=== PATIENT | male | born 1960 | race Hispanic/Latino ===

== ENCOUNTER 2025-07-02 19:41 | Emergency (ER) | payer OTHER ==
[~2025-07-02] VITALS: Ht 170.2 cm; Wt 77.1 kg
[2025-07-02 20:25] LABS: AMPHET/METH SCREEN,URINE NEGATIVE (NEGATIVE); BARBITURATE SCREEN, URINE NEGATIVE (NEGATIVE); CANNABINOID SCREEN,URINE NEGATIVE (NEGATIVE); COCAINE SCREEN,URINE NEGATIVE (NEGATIVE)
[2025-07-02 20:29] LABS: IMMATURE GRANULOCYTE ABSOLUTE 0.03 K/uL (0-1); NUCLEATED RED BLOOD CELLS 0.0 % (0.0-0.19); PLATELET COUNT (AUTO) 377 K/uL (130-400); RED BLOOD CELL COUNT(AUTO) 4.67 MIL/uL (4.50-6.20); RED CELL DISTRIBUTION WIDTH 12.4 % (11.0-15.5); WHITE BLOOD COUNT (AUTO) 9.2 K/uL (4.8-10.8)
[2025-07-02 20:38] LABS: CREATININE 0.8 mg/dL (0.5-1.3); GLOMERULAR FILTR. RATE CALC 98.0 mL/min (>90); GLUCOSE,RANDOM 144.0 mg/dL (70-105); SODIUM SERUM 135.0 mmol/L (136-145); UREA NITROGEN, BLOOD 5.0 mg/dL (7-18)
[2025-07-02 20:39] LABS: INR 1.08 (0.85-1.15)
[2025-07-02 20:44] LABS: ALCOHOL, BLOOD 304.0 mg/dL (0-10)
--- NOTE | 2025-07-02 20:49 | HMCIMG ---
EXAM: CT Cervical Spine Without IV contrast. CLINICAL HISTORY: trauma TECHNIQUE: Axial computed tomography images of the cervical spine without intravenous contrast. Sagittal and coronal reformatted images were generated. COMPARISON: None provided. FINDINGS: ALIGNMENT: Bony alignment is anatomic. DEGENERATIVE CHANGES: Severe cervical spondylosis is evident by marginal osteophytes at multiple levels, uncovertebral hypertrophy, and facet joint arthropathy. There is a straightening of the cervical spine that may reflect paraspinal muscle spasm. Multilevel endplate sclerosis. Moderate reduction in the C3-C4, C5-C6, and C6-C7 intervertebral disc heights. Moderate atlanto-axial joint osteoarthritis. Disc osteophyte complex bulge at the C3-C4 level, resulting in mild right and moderate left neural foraminal narrowing, with possible impingement of the exiting nerve roots. Disc osteophyte complex bulges at the C4-C5, C5-C6, and C6-C7 levels, resulting in mild to moderate bilateral neural foraminal narrowing, with possible impingement of the exiting nerve roots. SOFT TISSUES: The prevertebral soft tissues are within normal limits. BONES: No acute fracture or aggressive appearing osseous lesion. IMPRESSION: No acute cervical spine abnormality. Severe cervical spondylosis with multilevel disc osteophyte complex bulges as described. /[place]
[2025-07-02] MEDS: 0.9%NACL 1000ML 1,000 ML IV ONE (20:50)
--- NOTE | 2025-07-02 20:57 | HMCIMG ---
EXAM: Non-contrast CT examination of the Brain CLINICAL HISTORY: Trauma. TECHNIQUE: Thin collimated axial CT images of the brain were obtained with sagittal and coronal reformatted images also submitted. CT scan is done according to ALARA (As Low as Reasonably Achievable). CONTRAST USED: None. COMPARISON: None provided. FINDINGS: No acute intracranial abnormality is present. No acute cortical infarction, hemorrhage, mass, or mass effect. Mild generalized brain atrophy and chronic microvascular ischemic white matter disease. No hydrocephalus or abnormal extra-axial fluid collections. The posterior fossa is unremarkable. The skull base and calvarium are intact. Moderate fluid within the right maxillary sinus. The remaining paranasal sinuses are clear. The mastoid air cells are clear bilaterally. Soft tissue laceration and hematoma in the left parietal scalp. IMPRESSION: No acute intracranial abnormality is present. Moderate fluid within the right maxillary sinus. Soft tissue laceration and hematoma in the left parietal scalp. /[place]
--- NOTE | 2025-07-02 21:13 | HMCIMG ---
EXAM: CR Chest, 1 View. CLINICAL HISTORY: fall COMPARISON: None provided. FINDINGS: LUNGS: The lungs show no infiltrate or other acute finding. PLEURAL SPACES: No pleural effusion or pneumothorax. MEDIASTINUM: The cardiomediastinal silhouette is within normal limits. BONES: No aggressive appearing osseous lesion seen. IMPRESSION: No acute cardiopulmonary pathology is evident. /[place]
[2025-07-02] MEDS: LIDOCAINE HCL 1% 20 ML VIAL INJ ONE (22:08)
[2025-07-02] MEDS: NEOMY SULF/BACITRA/POLYMYXIN B 1 EACH PACKET TP ONE (22:34)
[2025-07-02 22:40] VITALS: BP 150/88; PULSE 98; RESP 18; TEMP 98.1; O2SAT 97
--- NOTE | 2025-07-02 22:46 | ERN ---
ED Note History of Present Illness Stated Complaint: FALL, HEAD INJURY Chief Complaint: Mechanical Fall Time Seen by MD: 19:45 Time Seen by Midlevel: 19:45 Dictation: The patient is a 64-year-old male with a history of hypertension, alcohol abuse who presents to the emergency department with complaints of a fall onset 7:00 p.m.. Patient reports he was getting history fine he got up really fast causing him to lost balance and falling backwards hitting the back of his head on a cabinet. Patient denies any syncope episode, denies any LOC, denies any nausea or vomiting, denies any neck pain chest pain back pain or any extremity pain. Patient's only complaint is a headache and a scalp laceration. Patient reports he has been drinking. Allergies: Coded Allergies: naproxen (Unverified Allergy, Unknown, 07/02/25) PATIENT REPORTS DOES NOT LIKE NAPROSYN Past Medical History Past Medical History: Hypertension Surgical History: None RN Note Reviewed/Agreed w/PFSH: Yes Review of System Dictation Constitutional: Negative for fever,chills, and weight loss Eyes: Negative for injury, pain,redness, and discharge ENT: Negative for injury,pain or swelling Cardiovascular: Negative for chest pain, palpitations, and edema Respiratory: Negative for shortness of breath, cough, and wheezing, Abdomen/GI: Negative for abdominal pain, nausea, vomiting, diarrhea, and constipation Back: Negative for injury and pain : Negative for injury, bleeding and discharge MS/Extremity: Negative for injury and deformity Skin: Negative for rash, and discoloration positive for laceration Neuro: Negative for weakness, numbness, tingling, and seizure positive for headache Psych: Negative for suicide ideation, homicidal ideation, and hallucinations Initial Vital Sign VS Vital Signs Date Time Temp Pulse Resp B/P (MAP) Pulse Ox O2 Delivery O2 Flow Rate FiO2 07/02/25 19:48 98.1 97 18 155/79 97 Room Air 0 07/02/25 20:14 21 Physical Exam Dictation Vital Signs reviewed General Appearance: Alert, oriented x 3, no acute distress, well developed, nourished. Head and Face: non-traumatic. Eyes: PERRL, pink conjunctivas, eyelid no trauma, anterior chamber with arcus senilis. Ears: Pinnas intact and no signs of trauma or erythema ear canals clear and no discharge TM no erythema Nose: No discharge, no bleeding. Oropharynx: Mouth normal, tongue pink. pharynx clear,no erythema, tonsils no exudates, no abscesses noted, mucous membrane moist Neck: Supple, non-tender, no thyromegaly, no masses, no JVD, no bruits Breast:Deferred Chest:No tenderness, no crepitus, no paradoxical movement, no retractions Lungs:Clear, well-ventilated, symmetric, no rales, no wheezing, no rhonchi, no stridor, good breath sounds bilaterally Heart: Regular rate, regular rhythm, no murmur, no gallops Vascular: no peripheral edema, Abdomen: Soft, positive bowel sounds, nondistended, no guarding, nontender, no rebound, no masses no hepatomegaly, no splenomegaly, no Chiu's sign, no hernias. Rectal: Deferred Genital: Deferred Neurological: Slight slurred speech, motor function intact, sensory function intact Musculoskeletal: Neck nontender, full range of motion, back nontender, full range of motion, Extremities: nontender, full range of motion Skin: Color pink, dry, no turgor, no rash, no abrasions, no contusions. 5 cm laceration to left parietal area, no active bleeding Lymphatic: Deferred Results (Laboratory/Radiology) Laboratory/Radiology Laboratory Tests Test 07/02/25 20:12 07/02/25 20:21 Urine Opiates Screen NEGATIVE (NEGATIVE) Urine Barbiturates Screen NEGATIVE (NEGATIVE) Urine Phencyclidine Screen NEGATIVE (NEGATIVE) Urine Amphetamines Screen NEGATIVE (NEGATIVE) Urine Benzodiazepines Screen NEGATIVE (NEGATIVE) Urine Cocaine Screen NEGATIVE (NEGATIVE) Urine Marijuana (THC) Screen NEGATIVE (NEGATIVE) White Blood Count 9.2 K/uL (4.8-10.8) Red Blood Count 4.67 MIL/uL (4.50-6.20) Hemoglobin 14.9 g/dL (14.0-18.0) Hematocrit 43.3 % (42-54) Mean Corpuscular Volume 92.7 fL (79-99) Mean Corpuscular Hemoglobin 31.9 pg (27.0-33.0) Mean Corpuscular Hemoglobin Concent 34.4 g/dL (32.0-36.0) Red Cell Distribution Width 12.4 % (11.0-15.5) Platelet Count 377 K/uL (130-400) Mean Platelet Volume 8.8 fL (7.5-10.5) Immature Granulocyte % (Auto) 0.3 % (0-1) Neutrophils (%) (Auto) 76.8 % (40.0-77.0) Lymphocytes (%) (Auto) 12.6 % (21.0-51.0) L Monocytes (%) (Auto) 7.7 % (3.0-13.0) Eosinophils (%) (Auto) 1.0 % (0.0-8.0) Basophils (%) (Auto) 1.6 % (0.0-5.0) Neutrophils # (Auto) 7.1 K/uL (1.8-7.7) Lymphocytes # (Auto) 1.2 K/uL (1.0-4.8) Monocytes # (Auto) 0.7 K/uL (0.1-1.0) Eosinophils # (Auto) 0.09 K/uL (0.00-0.70) Basophils # (Auto) 0.15 K/uL (0.00-0.20) Absolute Immature Granulocyte (auto 0.03 K/uL (0-1) Nucleated Red Blood Cells 0.0 % (0.0-0.19) Prothrombin Time 11.4 SEC (9.6-11.6) Prothromb Time International Ratio 1.08 (0.85-1.15) Activated Partial Thromboplast Time 27.1 SEC (26.3-35.5) Sodium Level 135 mmol/L (136-145) L Potassium Level 3.4 mmol/L (3.5-5.1) L Chloride Level 100 mmol/L (101-111) L Carbon Dioxide Level 24 mmol/L (21-32) Blood Urea Nitrogen 5 mg/dL (7-18) L Creatinine 0.8 mg/dL (0.5-1.3) Glomerular Filtration Rate Calc 98 mL/min (>90) Random Glucose 144 mg/dL (70-105) H Total Calcium 8.6 mg/dL (8.5-10.1) Troponin I High Sensitivity 39 ng/L (4-75) Serum Alcohol 304 mg/dL (0-10) H REASON: trauma ORDERING PHYSICIAN: SHALOM PLASCENCIA PROCEDURE: HEAD WO - CT HEAD/BRAIN W/O CONTRAST ADDENDUM REPORT ADDENDUM: Results were shared by telephone at 22:36 EST on 07/02/25 and acknowledged by CLAIM MANAGER Shalom Plummer. /[place] EXAM: Non-contrast CT examination of the Brain CLINICAL HISTORY: Trauma. TECHNIQUE: Thin collimated axial CT images of the brain were obtained with sagittal and coronal reformatted images also submitted. CT scan is done according to ALARA (As Low as Reasonably Achievable). CONTRAST USED: None. COMPARISON: None provided. FINDINGS: No acute intracranial abnormality is present. No acute cortical infarction, hemorrhage, mass, or mass effect. Mild generalized brain atrophy and chronic microvascular ischemic white matter disease. No hydrocephalus or abnormal extra-axial fluid collections. The posterior fossa is unremarkable. The skull base and calvarium are intact. Moderate fluid within the right maxillary sinus. The remaining paranasal sinuses are clear. The mastoid air cells are clear bilaterally. Soft tissue laceration and hematoma in the left parietal scalp. IMPRESSION: No acute intracranial abnormality is present. Moderate fluid within the right maxillary sinus. Soft tissue laceration and hematoma in the left parietal scalp. /[place] REASON: fall ORDERING PHYSICIAN: SHALOM PLASCENCIA NETWORK DIRECTOR PROCEDURE: CXR1VW - CHEST 1VW EXAM: CR Chest, 1 View. CLINICAL HISTORY: fall COMPARISON: None provided. FINDINGS: LUNGS: The lungs show no infiltrate or other acute finding. PLEURAL SPACES: No pleural effusion or pneumothorax. MEDIASTINUM: The cardiomediastinal silhouette is within normal limits. BONES: No aggressive appearing osseous lesion seen. IMPRESSION: No acute cardiopulmonary pathology is evident. /[place] REASON: trauma ORDERING PHYSICIAN: SHALOM PLASCENCIA NETWORK DIRECTOR PROCEDURE: C SPIN WO - CT CERVICAL SPINE W/O CONTRAST EXAM: CT Cervical Spine Without IV contrast. CLINICAL HISTORY: trauma TECHNIQUE: Axial computed tomography images of the cervical spine without intravenous contrast. Sagittal and coronal reformatted images were generated. COMPARISON: None provided. FINDINGS: ALIGNMENT: Bony alignment is anatomic. DEGENERATIVE CHANGES: Severe cervical spondylosis is evident by marginal osteophytes at multiple levels, uncovertebral hypertrophy, and facet joint arthropathy. There is a straightening of the cervical spine that may reflect paraspinal muscle spasm. Multilevel endplate sclerosis. Moderate reduction in the C3-C4, C5-C6, and C6-C7 intervertebral disc heights. Moderate atlanto-axial joint osteoarthritis. Disc osteophyte complex bulge at the C3-C4 level, resulting in mild right and moderate left neural foraminal narrowing, with possible impingement of the exiting nerve roots. Disc osteophyte complex bulges at the C4-C5, C5-C6, and C6-C7 levels, resulting in mild to moderate bilateral neural foraminal narrowing, with possible impingement of the exiting nerve roots. SOFT TISSUES: The prevertebral soft tissues are within normal limits. BONES: No acute fracture or aggressive appearing osseous lesion. IMPRESSION: No acute cervical spine abnormality. Severe cervical spondylosis with multilevel disc osteophyte complex bulges as described. /[place] Labs Reviewed?: Yes EKG: (+) rhythm (Sinus rhythm) EKG Comment: Date:07/02/2025 Time:2313 Ventricular rate:92 NE interval:174 QRS duration:98 QT/QTc:406/504 EKG interpretation: Sinus rhythm Reviewed by ED Attending no STEMI Date: 07/02/25 Time:2300 Ventricular rate:97 NE interval: QRS duration:93 QT/QTc:378/480 EKG interpretation: Atrial flutter (initial ekg was repeated to confirm) Reviewed by ED Attending no STEMI ED Course ED Course Orders Procedure Category Date Status Time Cbc With Differential LAB 07/02/25 Complete 19:55 Chest 1vw RAD 07/02/25 Resulted 19:55 12 Lead Ekg Tracing- EKG 07/02/25 Logged Technical 19:55 0.9%Nacl 1000ml (Ns PHA 07/02/25 Complete 1000ml) 20:00 Troponin I High LAB 07/02/25 Complete Sensitivity 19:55 Basic Metabolic Panel LAB 07/02/25 Complete 19:55 Acetaminophen 500mg PHA 07/02/25 Complete Tab (Tylenol 500mg T 20:00 Ct Head/Brain W/O CT 07/02/25 Resulted Contrast 19:55 Ct Cervical Spine W/O CT 07/02/25 Resulted Contrast 19:55 Alcohol, Blood LAB 07/02/25 Complete 19:55 Drug Screen Urine LAB 07/02/25 Complete 19:55 Tetanus,Diphtheria PHA 07/02/25 Complete Tox [Adult] (Diphther 20:00 Pt And Ptt LAB 07/02/25 Complete 19:55 Lidocaine Hcl 1% 20ml PHA 07/02/25 Complete Vial (Lidocaine Hc 22:00 Potassium Bicarb/Cit PHA 07/02/25 Complete Ac 25meq (K-Lyte Ta 22:00 Neomy PHA 07/02/25 Complete Sulf/Bacitra/Polymyxin 22:30 12 Lead Ekg Tracing- EKG 07/02/25 Logged Technical 23:13 Current Medications Medications (Trade) Dose Ordered Sig/Zi Route PRN Reason Start Time Stop Time Status Last Admin Dose Admin Acetaminophen (TYLenol 500MG TAB) 1,000 mg ONCE ONCE PO 07/02/25 20:00 07/02/25 20:01 DC 07/02/25 20:50 Lidocaine HCl (Lidocaine HCl 1% 20ml Vial) 10 ml ONCE ONCE INJ 07/02/25 22:00 07/02/25 22:02 DC Neomycin/ Polymyxin/ Bacitracin (Triple Antibiotic Ointment) 1 appl ONCE ONCE TP 07/02/25 22:30 07/02/25 22:31 DC 07/02/25 22:34 Potassium Bicarbonate (K-Lyte Tablet Eff 25 Meq Tablet.eff) 25 meq ONCE ONCE PO 07/02/25 22:00 07/02/25 22:02 DC 07/02/25 22:08 Sodium Chloride 1,000 ml @ 0 mls/hr ONCE ONCE IV 07/02/25 20:00 07/02/25 20:01 DC 07/02/25 20:50 Tetanus/ Diphtheria Toxoids Adsorbed (DiphthERIA-teTANUS TOXOID [ADULT]/ DECAVAC) 0.5 ml ONCE ONCE IM 07/02/25 20:00 07/02/25 20:01 DC 07/02/25 20:50 Vital Signs Date Time Temp Pulse Resp B/P (MAP) Pulse Ox O2 Delivery O2 Flow Rate FiO2 07/02/25 22:40 98.1 98 18 150/88 97 Room Air* 0 21 07/02/25 20:32 98.1 101 21 156/73 99 Room Air* 0 21 07/02/25 20:14 98.1 101 21 156/73 99 Room Air* 0 21 07/02/25 19:48 98.1 97 18 155/79 97 Room Air 0 Medical Decision Making MDM The patient is a 64-year-old male with a history of hypertension, alcohol abuse who presents to the emergency department with complaints of a fall onset 7:00 p.m.. Patient reports he was getting history fine he got up really fast causing him to lost balance and falling backwards hitting the back of his head on a cabinet. Patient denies any syncope episode, denies any LOC, denies any nausea or vomiting, denies any neck pain chest pain back pain or any extremity pain. Patient's only complaint is a headache and a scalp laceration. Patient reports he has been drinking. CBC showed no leukocytosis, no anemia, chemistry showed mild hypokalemia, mild hyponatremia, negative troponin CT head showed no acute intracranial pathology, scalp laceration and hematoma. Chest x-ray was unremarkable. C-spine showed no fractures mild cervical spondylosis. Patient instructed to follow up with PCP for this issue. Patient currently with no neck pain. Patient had a laceration to the scalp area and was repaired. Patient was updated for tetanus. Patient tolerated procedure well. Minimal bleeding. Patient patient's at bedside who agrees to monitor patient at home and takes responsibility for his care due to his intoxication. Patient otherwise in no acute distress, nontoxic appearance, is alert and oriented x3 with a slight slurred speech but follows commands in his able to have a appropriate conversation. Patient with stable vital signs. We will discharge patient to follow up with PCP. Differential diagnosis: Intracranial hemorrhage, laceration, dehydration, alcoholism, ACS Need for hospitalization: Patient does not meet criteria for hospitalization. There are no social concerns with this patient. Procedure Procedure Dictation: Time and Date Performed: 07/02/252142 INDICATION: Laceration Location: If prior to scalp Informed consent was obtained. Pre-procedure time out was obtained. Anesthetic: 1% lidocaine Manual prep of skin and wound was done with hibiclens. Foreign Body: NO foreign bodies were identified. Length Repaired: 5 cm Seth # of simple sutures:6 Aseptic technique was used during the entire procedure. Wound Location: head Wound Length (cm): 5 Wound's Depth, Shape: irregular Wound Explored: clean Betadine Prep?: Yes Anesthesia: 1% Lidocaine Volume Anesthetic (ccs): 10 Wound Debrided: minimal Wound Repaired With: seth Number of Sutures: 6 DX & DISP Disposition: Discharge Departure Impression: Primary Impression: Fall Additional Impressions: Scalp laceration, Alcohol abuse, Cervical spondylosis Condition: Stable Additional Instructions: Keep your seth clean and dry. Do not put your seth under water, such as in a bath, pool, or awad. This can slow healing and raise your chance of getting an infection. Avoid activities or sports that could hurt the area of your seth for 1-2 weeks. Avoid any activity that can cause further injury to your head. Avoid increased green time. You should call your doctor if you develop any fever, redness or swelling around the cut, or pus draining from the cut. Your seth will need to be removed in 7-10 days. We placed six seth If you develop severe confusion, severe nausea or vomiting if anything worsens please return to ER. Otherwise follow up with your primary doctor in 1-2 days FOLLOW-UP WITH PRIMARY CARE PROVIDER IN 1 TO 2 DAYS. TAKE MEDICATIONS DIRECTED HERE IN THE EMERGENCY ROOM. OKAY TO CONTINUE HOME MEDICATIONS UNLESS OTHERWISE DISCUSSED DURING YOUR VISIT IN THE EMERGENCY ROOM TODAY. RETURN TO YOUR NEAREST EMERGENCY ROOM IF SYMPTOMS WORSEN OR IF THERE IS NO IMPROVEMENT. CALL 911 IF YOU NEED IMMEDIATE ASSISTANCE. TAKE TYLENOL [id number] NEEDED AND IF NO CONTRAINDICATIONS ARE PRESENT. INCREASE ORAL HYDRATION. A WOUND CULTURE OR URINE CULTURE WAS ORDERED HERE IN THE EMERGENCY ROOM DEPARTMENT PLEASE FOLLOW-UP WITH PRIMARY CARE PROVIDER AND ADVISE THEM TO GET REPEAT PORTS FROM OUR FACILITY. IF YOU HAD ANY YAHIR WRAP/SPLINTS THAT WERE APPLIED HERE, PLEASE DO NOT REMOVE THEM UNTIL YOU SEE YOUR PRIMARY CARE OR SPECIALTY. Referrals: NANNETTE PETERS MD (PCP) Time of Disposition: 22:46 I have examined patient, & reviewed all documents, & agreed W/ the Diagnosis, and Plan SHALOM PLASCENCIA Jul 02, 2025 22:46
--- NOTE | 2025-07-03 06:34 | EKG ---
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
== END 2025-07-02 23:24 | disposition home or self-care (01) ==
LOC: EDH 19:41
DX: S01.01XA Laceration without foreign body of scalp, initial encounter (principal); F10.10 Alcohol abuse, uncomplicated; M47.812 Spondylosis without myelopathy or radiculopathy, cervical region; I10 Essential (primary) hypertension; Z88.6 Allergy status to analgesic agent; W19.XXXA Unspecified fall, initial encounter; Y93.89 Activity, other specified; Y92.89 Other specified places as the place of occurrence of the external cause; Y99.8 Other external cause status; Y90.8 Blood alcohol level of 240 mg/100 ml or more
CPT/HCPCS: 99285; 70450; 96360; 71045; 84484; 80048; 80305; 85025; 85610; 85730; 36415; 90714; 72125; 90471; 12002; 93005; J7030